=== PATIENT | female | born 2000 | race Caucasian/White ===

== ENCOUNTER 2022-02-03 22:41 | Emergency (ER) | payer OTHER, SELFPAY ==
[2022-02-03 22:56] VITALS: BP 139/90; PULSE 97; RESP 20; TEMP 37.1; O2SAT 99
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
[2022-02-04 02:00] VITALS: BP 142/86; PULSE 92; RESP 16; O2SAT 99
== END 2022-02-04 02:00 | disposition home or self-care (01) ==
PROVIDERS: Emergency Provider Emergency Medicine
DX: S09.90XA Unspecified injury of head, initial encounter (principal); S00.81XA Abrasion of other part of head, initial encounter; W51.XXXA Accidental striking against or bumped into by another person, initial encounter; Y99.0 Civilian activity done for income or pay
CPT/HCPCS: 99281